=== PATIENT | male | born 1960 | race Two or more races ===

== ENCOUNTER 2021-06-19 08:42 | Day surgery (SDC) | payer BC ==
[2021-06-13 09:42] VITALS: BMI 28.1
[2021-06-19] MEDS ORDERED: ROPIVACAINE HCL 0.5% 30ML VIAL ONE ×2 (10:12→10:26)
[2021-06-19] MEDS ORDERED: MIDAZOLAM HCL 2 MG/2 ML SINGLE DOSE VIAL ONE ×3 (10:12→11:26)
[2021-06-19] MEDS ORDERED: DEXAMETHASONE SOD PHOSPHATE 10 MG/1 ML VIAL ONE (10:12)
[2021-06-19] MEDS ORDERED: ONDANSETRON 4 MG/2 ML VIAL IVPUSH PRN (10:48)
[2021-06-19] MEDS ORDERED: PROMETHAZINE HCL 25 MG/1 ML VIAL IVPUSH PRN (10:48)
[2021-06-19] MEDS ORDERED: oxyCODONE HCL 5 MG TABLET PO PRN (10:48)
[2021-06-19] MEDS ORDERED: PROPOFOL 20 ML ONE ×3 (10:49)
[2021-06-19] MEDS ORDERED: LACTATED RINGERS SOLUTION 1,000 ML IV SCH (11:00)
[2021-06-19] MEDS ORDERED: ceFAZolin SODIUM 1 GM VIAL ONE (11:09)
[2021-06-19] MEDS ORDERED: LIDOCAINE HCL 1%, 10 MG/ML (20ML VIAL) ONE (11:18)
[2021-06-19 13:30] VITALS: BP 120/70; PULSE 65; TEMP 97.8
== END 2021-06-19 13:45 | disposition home or self-care (01) ==
LOC: FASU 08:42
PROVIDERS: ATTEND Orthopaedic Surgery
PROC: 0RNJXZZ Release Right Shoulder Joint, External Approach (ICD-10-PCS; 2021-06-19)
PROC: 0PB94ZZ Excision of Right Clavicle, Percutaneous Endoscopic Approach (ICD-10-PCS; principal; 2021-06-19 11:18)
PROC: 0RNJ4ZZ Release Right Shoulder Joint, Percutaneous Endoscopic Approach (ICD-10-PCS; 2021-06-19 11:18)
DX: M19.011 Primary osteoarthritis, right shoulder (principal); M75.01 Adhesive capsulitis of right shoulder; M75.41 Impingement syndrome of right shoulder
CPT/HCPCS: 94760; J1100